=== PATIENT | female | born 1960 | race Caucasian/White ===

== ENCOUNTER 2016-08-03 16:27 | Emergency (ER) | payer OTHER ==
--- NOTE | 2016-08-03 18:21 | DIAGNOSTIC IMAGING REPORT ---
PROCEDURE: XR CHEST 2 VIEW INDICATION: COUGH TECHNIQUE: PA and lateral views. COMPARISON: None. FINDINGS: Lungs are clear. There is cardiomegaly. Thorax is normal. IMPRESSION: 1. Cardiomegaly, lungs clear.
--- NOTE | 2016-08-03 18:24 | DIAGNOSTIC IMAGING REPORT ---
PROCEDURE: XR HAND 3 OR 4 VIEWS - RIGHT INDICATION: TRAUMA/INJURY TECHNIQUE: Four views. COMPARISON: None. FINDINGS: Osseous structures and joint spaces are normal. There is demineralization. IMPRESSION: 1. No fracture or dislocation.
--- NOTE | 2016-08-03 18:26 | DIAGNOSTIC IMAGING REPORT ---
PROCEDURE: XR FOOT 3 VIEWS - RIGHT INDICATION: TRAUMA/INJURY TECHNIQUE: Three views. COMPARISON: None. FINDINGS: Fracture of the proximal phalanx of the fifth digit right fifth toe. IMPRESSION: 1. Fracture of the proximal phalanx of the fifth digit of the right foot.
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
--- NOTE | 2016-08-03 18:54 | ED ORDER SUMMARY ---
..... Patient: TATI NORIEGA OrderSheet [facility] VisitID: [id number] [place] [address] 55y, F Registration Date/Time: 08/03/2016 ORDER SHEET Weight: 136.0 kg (stated) Allergies: Allergen, Loratadine GENERAL ORDERS: Chest 2V Urgent (16:46 08/03/2016 EKoroleva P.A.-C) (Ack 16:48 RKaruga) (17:33 SRoberts R.N.) Hand 3 or 4V Right Urgent (16:46 08/03/2016 EKoroleva P.A.-C) (Ack 16:48 RKaruga) (17:33 SRoberts R.N.) Foot 3V Right Urgent (16:46 08/03/2016 EKoroleva P.A.-C) (Ack 16:48 RKaruga) (17:33 SRoberts R.N.) CBC w Diff Urgent (16:46 08/03/2016 EKoroleva P.A.-C) (Ack 16:48 RKaruga) (17:20 LTapper) BMP Urgent (16:46 08/03/2016 EKoroleva P.A.-C) (Ack 16:48 RKaruga) (17:20 LTapper) BNP Urgent (16:46 08/03/2016 EKoroleva P.A.-C) (Ack 16:48 RKaruga) (17:20 LTapper) Post-op Shoe (18:06 08/03/2016 EKoroleva P.A.-C) (18:20 JBest R.N.) Vitals (18:11 08/03/2016 EKoroleva P.A.-C) (18:20 JBest R.N.) Acetone, Serum Urgent (18:11 08/03/2016 EKoroleva P.A.-C) (Ack 18:16 RKaruga) (19:33 SRoberts R.N.) MEDICATION ORDERS: DuoNeb Neb Tx 1 unit dose (NOW) (17:22 08/03/2016 EKoroleva P.A.-C) (17:46 DBourey) Insulin Reg Subcut 14 units (HIGH ALERT MEDICATION, NOW) (17:26 08/03/2016 Peter Osman) (17:41 Anju RGracieNGracie) Hydrocodone-APAP PO 10/650 mg (NOW, HIGH ALERT MEDICATION) (18:06 08/03/2016 Peter Osman) (Ack 18:19 Anju R.NGracie) (18:19 Tegan R.Trina.) IV FLUIDS: ORDER SHEET NOTES: [Electronically signed by Ronel Soriano P.A.-C (19:13 08/03/2016)] [Electronically signed by Mikki Chacon R.N. (19:34 08/03/2016)] [Electronically locked/signed by Mikki Chacon R.N. (19:34 08/03/2016)]
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
--- NOTE | 2016-08-03 18:54 | ED ORDER SUMMARY ---
..... Patient: TATI NORIEGA OrderSheet [facility] VisitID: [id number] [place] [address] 55y, F Registration Date/Time: 08/03/2016 ORDER SHEET Weight: 136.0 kg (stated) Allergies: Allergen, Loratadine GENERAL ORDERS: Chest 2V Urgent (16:46 08/03/2016 EKoroleva P.A.-C) (Ack 16:48 RKaruga) (17:33 SRoberts R.N.) Hand 3 or 4V Right Urgent (16:46 08/03/2016 EKoroleva P.A.-C) (Ack 16:48 RKaruga) (17:33 SRoberts R.N.) Foot 3V Right Urgent (16:46 08/03/2016 EKoroleva P.A.-C) (Ack 16:48 RKaruga) (17:33 SRoberts R.N.) CBC w Diff Urgent (16:46 08/03/2016 EKoroleva P.A.-C) (Ack 16:48 RKaruga) (17:20 LTapper) BMP Urgent (16:46 08/03/2016 EKoroleva P.A.-C) (Ack 16:48 RKaruga) (17:20 LTapper) BNP Urgent (16:46 08/03/2016 EKoroleva P.A.-C) (Ack 16:48 RKaruga) (17:20 LTapper) Post-op Shoe (18:06 08/03/2016 EKoroleva P.A.-C) (18:20 JBest R.N.) Vitals (18:11 08/03/2016 EKoroleva P.A.-C) (18:20 JBest R.N.) Acetone, Serum Urgent (18:11 08/03/2016 EKoroleva P.A.-C) (Ack 18:16 RKaruga) (19:33 SRoberts R.N.) MEDICATION ORDERS: DuoNeb Neb Tx 1 unit dose (NOW) (17:22 08/03/2016 EKoroleva P.A.-C) (17:46 DBourey) Insulin Reg Subcut 14 units (HIGH ALERT MEDICATION, NOW) (17:26 08/03/2016 Peter Osman) (17:41 Anju RGracieNGracie) Hydrocodone-APAP PO 10/650 mg (NOW, HIGH ALERT MEDICATION) (18:06 08/03/2016 Peter Osman) (Ack 18:19 Anju R.NGracie) (18:19 Tegan R.Trina.) IV FLUIDS: ORDER SHEET NOTES: [Electronically signed by Ronel Soriano P.A.-C (19:13 08/03/2016)] [Electronically signed by Mikki Chacon R.N. (19:34 08/03/2016)] [Electronically locked/signed by Mikki Chacon R.N. (19:34 08/03/2016)]
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
--- NOTE | 2016-08-03 19:34 | ED DISCHARGE INSTRUCTIONS ---
Patient: TATI NORIEGA General Instructions [facility] VisitID: [id number] [place] [id number] 55y, F Registration Date/Time: 08/03/2016 Closed transverse fracture of the proximal phalanx of the right fifth toe. Chronic, moderately well controlled type 2 diabetes with hyperglycemia. No diabetic ketoacidosis. INSTRUCTIONS Prescription Medications: Hydrocodone/APAP 7.5mg / 325mg: take 1 orally every 6 hours as needed for pain. Dispense twelve (12). No refill. Follow-up with: Cesar Bolivar DPM, Podiatry, , [facility], [address] [place] [address], [address], [place] [address] Follow up. Call for the next available appointment. ADDITIONAL INFORMATION Fracture:Toe [Closed] You have a fracture of your toe (broken toe). This causes local pain, swelling and bruising. This injury takes about four weeks to heal. Toe injuries are often treated by taping the injured toe to the next one ("david taping"). This protects the injured toe and holds it in position. If the TOENAIL has been severely injured, it may fall off in 1-2 weeks. It takes up to 12 months for a new toenail to grow back. Home Care: 1) You may be given a cast shoe to wear to prevent movement in your toe. If not, you can use a sandal or any shoe that does not put pressure on the injured toe until the swelling and pain go away. If using a sandal, be careful not to strike your foot against anything, since another injury could make the fracture worse. If you were given crutches, do not put full weight on the injured foot until you can do so without pain. 2) Keep your foot elevated to reduce pain and swelling. When sleeping, place a pillow under the injured leg. When sitting, support the injured leg so it is level with your waist. This is very important during the first 48 hours. 3) Apply an ice pack (ice cubes in a plastic bag, wrapped in a towel) over the injured area for 20 minutes every 1-2 hours the first day. Continue with ice packs 3-4 times a day for the next two days, then as needed for the relief of pain and swelling. 4) If david tape was applied and it becomes wet or dirty, change it. You may replace it with paper, plastic or cloth tape. Cloth tape and paper tapes must be kept dry. 5) You may use acetaminophen (Tylenol) or ibuprofen (Motrin, Advil) to control pain, unless another pain medicine was prescribed. [ NOTE : If you have chronic liver or kidney disease or ever had a stomach ulcer or GI bleeding, talk with your doctor before using these medicines.] 6) You may return to sports or physical education activities after 4 weeks or when you can run without pain. Follow Up With Your Doctor In One Week, Or As Advised By Our Staff, To Be Sure The Bone Is Healing Properly. [NOTE: Any X-rays taken will be reviewed by a radiologist. You will be notified of any new findings that may affect your care.] Get Prompt Medical Attention If Any Of The Following Occur: Increasing pain or swelling Toe becomes cold, blue, numb or tingly Signs of infection: fever, redness, warmth, swelling or drainage from the wound Fever of 100.4F (38C) or higher, or as directed by your healthcare provider You have been given the following additional information: Fracture, Toe [Closed] (Electronically signed by Ronel Soriano P.A.-C 08/03/2016 19:13)
--- NOTE | 2016-08-03 19:34 | ED MED RECONCILIATION SUMMARY ---
Patient: TATI NORIEGA Medication Reconciliation Report [facility] VisitID: [id number] [address] [place] [address] 55y, F Registration Date/Time: 08/03/2016 Weight: 136.0 kg Height/Length: 65 in. BMI: 50.0 ALLERGIES: Allergen, Loratadine The patient's Home Medications are listed below: THE FOLLOWING MEDICATIONS NEED TO BE RECONCILED: Advair Diskus Inhalation, 2x a day Albuterol Sulfate HFA Inhalation, 4x a day Alcaftadine Ophthalmic 1 gtt, each eye/ daily ASA Oral 81mg, daily Cetirizine HCl Oral 10 mg, daily Citalopram Hydrobromide Oral (40 mg), daily Cod Liver Oil Oral 1 tablespoon, daily Combivent Inhalation Flonase Nasal 2 sprays, 2x a day HumaLOG Subcutaneous 20 units, before meals HydrOXYzine HCl Oral 25 mg, 4x a day Lantus Subcutaneous 100 units, daily Lasix Oral 80 mg, 2x a day Levothyroxine Sodium Oral 175 mcg, daily Mirena 20mcg/24hr x 5 yrs Nitroglycerin Sublingual [place] 3 Oral 300 mg, daily Oyster Shell Calcium Oral (500 mg), bid Pantanol 1 gtt , 2x a day, opthalmic route Potassium Chloride Oral 10 meq, 3x a day Spiriva HandiHaler Inhalation Vit D 3 2000 units, daily The source(s) of the original Home Medication information: patient The following Medications were given to the patient in the Emergency Department: Insulin Reg [Subcutaneous] Subcutaneous 14 unit, administered: 08/03/2016 5:40:00 PM Duoneb [Neb Tx] Neb TX 1 unit dose, administered: 08/03/2016 5:41:00 PM Hydrocodone-APAP [PO] PO 2 tab, administered: 08/03/2016 6:19:00 PM The following Medications were prescribed to the patient: Hydrocodone/APAP 7.5mg / 325mg: take 1 orally every 6 hours as needed for pain. Dispense twelve (12). No refill. -- Ronel Soriano, PGracieAGracie-C
--- NOTE | 2016-08-03 19:34 | ED MAR SUMMARY ---
..... Medication Administration Record [facility] [address] [place] [address] Patient: TATI NORIEGA Visit ID: [id number] 55y, F Weight: 136.0 kg Height/Length: 65 in BMI: 50 ALLERGIES: Allergen, Loratadine Given 17:40 08/03/2016 Mikki Chacon R.N. Medication Administered: INSULIN REG [SUBCUTANEOUS], Dose: 14 unit Subcutaneous. Medication Ordered: Insulin Reg Subcut 14 units (HIGH ALERT MEDICATION, NOW). Given 17:41 08/03/2016 Miguel Paiz, Medication Administered: DUONEB [NEB TX] (IPRATROPIUM-ALBUTEROL), Dose: 1 unit dose Neb TX. Medication Ordered: DuoNeb Neb Tx 1 unit dose (NOW). Given 18:19 08/03/2016 Rachana Messer R.N. Medication Administered: HYDROCODONE-APAP [PO] (HYDROCODONE-ACETAMINOPHEN), Dose: 2 tab 5/325 mg Tablets PO. Medication Ordered: Hydrocodone-APAP PO 10/650 mg (NOW, HIGH ALERT MEDICATION).
--- NOTE | 2016-08-03 19:34 | ED MAR SUMMARY ---
..... Medication Administration Record [facility] [address] [place] [address] Patient: TATI NORIEGA Visit ID: [id number] 55y, F Weight: 136.0 kg Height/Length: 65 in BMI: 50 ALLERGIES: Allergen, Loratadine Given 17:40 08/03/2016 Mikki Chacon R.N. Medication Administered: INSULIN REG [SUBCUTANEOUS], Dose: 14 unit Subcutaneous. Medication Ordered: Insulin Reg Subcut 14 units (HIGH ALERT MEDICATION, NOW). Given 17:41 08/03/2016 Miguel Paiz, Medication Administered: DUONEB [NEB TX] (IPRATROPIUM-ALBUTEROL), Dose: 1 unit dose Neb TX. Medication Ordered: DuoNeb Neb Tx 1 unit dose (NOW). Given 18:19 08/03/2016 Rachana Messer R.N. Medication Administered: HYDROCODONE-APAP [PO] (HYDROCODONE-ACETAMINOPHEN), Dose: 2 tab 5/325 mg Tablets PO. Medication Ordered: Hydrocodone-APAP PO 10/650 mg (NOW, HIGH ALERT MEDICATION).
--- NOTE | 2016-08-03 19:34 | ED MED RECONCILIATION SUMMARY ---
Patient: TATI NORIEGA Medication Reconciliation Report [facility] VisitID: [id number] [address] [place] [address] 55y, F Registration Date/Time: 08/03/2016 Weight: 136.0 kg Height/Length: 65 in. BMI: 50.0 ALLERGIES: Allergen, Loratadine The patient's Home Medications are listed below: THE FOLLOWING MEDICATIONS NEED TO BE RECONCILED: Advair Diskus Inhalation, 2x a day Albuterol Sulfate HFA Inhalation, 4x a day Alcaftadine Ophthalmic 1 gtt, each eye/ daily ASA Oral 81mg, daily Cetirizine HCl Oral 10 mg, daily Citalopram Hydrobromide Oral (40 mg), daily Cod Liver Oil Oral 1 tablespoon, daily Combivent Inhalation Flonase Nasal 2 sprays, 2x a day HumaLOG Subcutaneous 20 units, before meals HydrOXYzine HCl Oral 25 mg, 4x a day Lantus Subcutaneous 100 units, daily Lasix Oral 80 mg, 2x a day Levothyroxine Sodium Oral 175 mcg, daily Mirena 20mcg/24hr x 5 yrs Nitroglycerin Sublingual [place] 3 Oral 300 mg, daily Oyster Shell Calcium Oral (500 mg), bid Pantanol 1 gtt , 2x a day, opthalmic route Potassium Chloride Oral 10 meq, 3x a day Spiriva HandiHaler Inhalation Vit D 3 2000 units, daily The source(s) of the original Home Medication information: patient The following Medications were given to the patient in the Emergency Department: Insulin Reg [Subcutaneous] Subcutaneous 14 unit, administered: 08/03/2016 5:40:00 PM Duoneb [Neb Tx] Neb TX 1 unit dose, administered: 08/03/2016 5:41:00 PM Hydrocodone-APAP [PO] PO 2 tab, administered: 08/03/2016 6:19:00 PM The following Medications were prescribed to the patient: Hydrocodone/APAP 7.5mg / 325mg: take 1 orally every 6 hours as needed for pain. Dispense twelve (12). No refill. -- Ronel Soriano, PGracieAGracie-C
--- NOTE | 2016-08-03 19:34 | ED DISCHARGE INSTRUCTIONS ---
Patient: TATI NORIEGA General Instructions [facility] VisitID: [id number] [place] [id number] 55y, F Registration Date/Time: 08/03/2016 Closed transverse fracture of the proximal phalanx of the right fifth toe. Chronic, moderately well controlled type 2 diabetes with hyperglycemia. No diabetic ketoacidosis. INSTRUCTIONS Prescription Medications: Hydrocodone/APAP 7.5mg / 325mg: take 1 orally every 6 hours as needed for pain. Dispense twelve (12). No refill. Follow-up with: Cesar Bolivar DPM, Podiatry, , [facility], [address] [place] [address], [address], [place] [address] Follow up. Call for the next available appointment. ADDITIONAL INFORMATION Fracture:Toe [Closed] You have a fracture of your toe (broken toe). This causes local pain, swelling and bruising. This injury takes about four weeks to heal. Toe injuries are often treated by taping the injured toe to the next one ("david taping"). This protects the injured toe and holds it in position. If the TOENAIL has been severely injured, it may fall off in 1-2 weeks. It takes up to 12 months for a new toenail to grow back. Home Care: 1) You may be given a cast shoe to wear to prevent movement in your toe. If not, you can use a sandal or any shoe that does not put pressure on the injured toe until the swelling and pain go away. If using a sandal, be careful not to strike your foot against anything, since another injury could make the fracture worse. If you were given crutches, do not put full weight on the injured foot until you can do so without pain. 2) Keep your foot elevated to reduce pain and swelling. When sleeping, place a pillow under the injured leg. When sitting, support the injured leg so it is level with your waist. This is very important during the first 48 hours. 3) Apply an ice pack (ice cubes in a plastic bag, wrapped in a towel) over the injured area for 20 minutes every 1-2 hours the first day. Continue with ice packs 3-4 times a day for the next two days, then as needed for the relief of pain and swelling. 4) If david tape was applied and it becomes wet or dirty, change it. You may replace it with paper, plastic or cloth tape. Cloth tape and paper tapes must be kept dry. 5) You may use acetaminophen (Tylenol) or ibuprofen (Motrin, Advil) to control pain, unless another pain medicine was prescribed. [ NOTE : If you have chronic liver or kidney disease or ever had a stomach ulcer or GI bleeding, talk with your doctor before using these medicines.] 6) You may return to sports or physical education activities after 4 weeks or when you can run without pain. Follow Up With Your Doctor In One Week, Or As Advised By Our Staff, To Be Sure The Bone Is Healing Properly. [NOTE: Any X-rays taken will be reviewed by a radiologist. You will be notified of any new findings that may affect your care.] Get Prompt Medical Attention If Any Of The Following Occur: Increasing pain or swelling Toe becomes cold, blue, numb or tingly Signs of infection: fever, redness, warmth, swelling or drainage from the wound Fever of 100.4F (38C) or higher, or as directed by your healthcare provider You have been given the following additional information: Fracture, Toe [Closed] (Electronically signed by Ronel Soriano P.A.-C 08/03/2016 19:13)
== END 2016-08-03 19:05 | disposition home or self-care (01) ==
LOC: ED SRH 16:27
DX: S92.511A Displaced fracture of proximal phalanx of right lesser toe(s), initial encounter for closed fracture (principal); E11.65 Type 2 diabetes mellitus with hyperglycemia; J44.9 Chronic obstructive pulmonary disease, unspecified; W18.30XA Fall on same level, unspecified, initial encounter; Z79.4 Long term (current) use of insulin; E07.9 Disorder of thyroid, unspecified; Z79.899 Other long term (current) drug therapy; Z79.51 Long term (current) use of inhaled steroids

== ENCOUNTER 2016-11-15 22:05 | Emergency (ER) | payer OTHER ==
--- NOTE | 2016-11-15 23:37 | DIAGNOSTIC IMAGING REPORT ---
PROCEDURE: XR WRIST MIN 3 VIEWS - LEFT INDICATION: TRAUMA/INJURY TECHNIQUE: Four views. COMPARISON: Left wrist x-ray 11/02/2014. FINDINGS: No fracture dislocation. Mild degenerative changes of the radiocarpal joint. IMPRESSION: 1. Negative left wrist. If an occult scaphoid fracture is suspected clinically, follow-up x-ray in 10 days may be useful.
--- NOTE | 2016-11-15 23:38 | DIAGNOSTIC IMAGING REPORT ---
PROCEDURE: XR ELBOW 3 OR 4 VIEWS - LEFT INDICATION: TRAUMA/INJURY TECHNIQUE: Four views. COMPARISON: None. FINDINGS: Osseous structures, joint spaces, and soft tissues are normal. No evidence of an effusion. IMPRESSION: 1. Normal left elbow.
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
--- NOTE | 2016-11-15 23:42 | ED ORDER SUMMARY ---
..... Patient: TATI NORIEGA OrderSheet [facility] VisitID: [id number] [place] [address] 55y, F Registration Date/Time: 11/15/2016 ORDER SHEET Weight: 136.0 kg (stated) Allergies: Allergen, Loratadine GENERAL ORDERS: Elbow 3 or 4V Left Urgent (23:03 11/15/2016 Trina SANZ) (Ack 23:04 AMcQuoid ER Tech1) (23:20 MCampbell) Wrist 3 or 4V Left Urgent (23:03 11/15/2016 Trina SANZ) (Ack 23:04 AMcQuoid ER Tech1) (23:20 MCampbell) MEDICATION ORDERS: Ibuprofen PO 600 mg (NOW) (23:37 11/15/2016 Citlaly R.N. verbal order read back to Trina SANZ) (23:39 RMkrupa R.N.) Verbal order read back and verified IV FLUIDS: ORDER SHEET NOTES: [Electronically signed by Elissa Carrasco R.N. (00:02 11/16/2016)] [Electronically signed by Rosalio Hardy MD (18:50 11/20/2016)] [Electronically locked/signed by Elissa Carrasco R.N. (00:02 11/16/2016)]
--- NOTE | 2016-11-15 23:42 | ED ORDER SUMMARY ---
..... Patient: TATI NORIEGA OrderSheet [facility] VisitID: [id number] [place] [address] 55y, F Registration Date/Time: 11/15/2016 ORDER SHEET Weight: 136.0 kg (stated) Allergies: Allergen, Loratadine GENERAL ORDERS: Elbow 3 or 4V Left Urgent (23:03 11/15/2016 Trina SANZ) (Ack 23:04 AMcQuoid ER Tech1) (23:20 MCampbell) Wrist 3 or 4V Left Urgent (23:03 11/15/2016 Trina SANZ) (Ack 23:04 AMcQuoid ER Tech1) (23:20 MCampbell) MEDICATION ORDERS: Ibuprofen PO 600 mg (NOW) (23:37 11/15/2016 Citlaly R.N. verbal order read back to Trina SANZ) (23:39 RMkrupa R.N.) Verbal order read back and verified IV FLUIDS: ORDER SHEET NOTES: [Electronically signed by Elissa Carrasco R.N. (00:02 11/16/2016)] [Electronically signed by Rosalio Hardy MD (18:50 11/20/2016)] [Electronically locked/signed by Elissa Carrasco R.N. (00:02 11/16/2016)]
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
--- NOTE | 2016-11-20 18:50 | ED MED RECONCILIATION SUMMARY ---
Patient: TATI NORIEGA Medication Reconciliation Report [facility] VisitID: [id number] [place] [address] 55y, F Registration Date/Time: 11/15/2016 Weight: 136.0 kg Height/Length: 66 in. BMI: 48.4 ALLERGIES: Allergen, Loratadine The patient's Home Medications are listed below: THE FOLLOWING MEDICATIONS NEED TO BE RECONCILED: Advair Diskus Inhalation, 2x a day Albuterol Sulfate HFA Inhalation, 4x a day Alcaftadine Ophthalmic 1 gtt, each eye/ daily ASA Oral 81mg, daily Cetirizine HCl Oral 10 mg, daily Citalopram Hydrobromide Oral (40 mg), daily Cod Liver Oil Oral 1 tablespoon, daily Combivent Inhalation Flonase Nasal 2 sprays, 2x a day HumaLOG Subcutaneous 20 units, before meals HydrOXYzine HCl Oral 25 mg, 4x a day Lantus Subcutaneous 100 units, daily Lasix Oral 80 mg, 2x a day Levothyroxine Sodium Oral 175 mcg, daily Mirena 20mcg/24hr x 5 yrs Nitroglycerin Sublingual [place] 3 Oral 300 mg, daily Oyster Shell Calcium Oral (500 mg), bid Pantanol 1 gtt , 2x a day, opthalmic route Potassium Chloride Oral 10 meq, 3x a day Spiriva HandiHaler Inhalation Vit D 3 2000 units, daily The source(s) of the original Home Medication information: Not obtained. The following Medications were given to the patient in the Emergency Department: Ibuprofen [PO] PO 600 mg, administered: 11/15/2016 11:39:00 PM The following Medications were prescribed to the patient: Ibuprofen 600mg tablets: take 1 tablet orally every 8 hours as needed for pain. Dispense thirty (30). No refills. -- Rosalio Hardy MD Magnesium Citrate (10-oz bottle) (available over the counter): take 1/2 bottle to achieve bowel movement. Repeat after 4 hours if needed. -- Rosalio Hardy MD Hydrocortisone 2.5% Cream: Apply to affected areas 2 times daily as needed. Dispense twenty (20) gm. No refills. Substitution is permissible. -- Rosalio Hardy MD
--- NOTE | 2016-11-20 18:50 | ED DISCHARGE INSTRUCTIONS ---
Patient: TATI NORIEGA General Instructions [facility] VisitID: [id number] [place] [address] 55y, F Registration Date/Time: 11/15/2016 Contusion to the left forearm. Neuropathy. Constipation Moderate irritative contact dermatitis. INSTRUCTIONS Warnings: GENERAL WARNINGS: Return or contact your physician immediately if your condition worsens or changes unexpectedly, if not improving as expected, or if other problems arise. Prescription Medications: Ibuprofen 600mg tablets: take 1 tablet orally every 8 hours as needed for pain. Dispense thirty (30). No refills. Hydrocortisone 2.5% Cream: Apply to affected areas 2 times daily as needed. Dispense twenty (20) gm. No refills. Substitution is permissible. OTC Medications: Magnesium Citrate (10-oz bottle) (available over the counter): take 1/2 bottle to achieve bowel movement. Repeat after 4 hours if needed. Follow-up: Follow up with your doctor FAUSTINO URBINA in seven days. Call for the next available appointment. Understanding of the discharge instructions verbalized by patient. ADDITIONAL INFORMATION Contusion:Upper Extremity You have a contusion of your upper extremity (arm, wrist, hand or fingers). This causes local pain, swelling and sometimes bruising. There are no broken bones. This injury takes a few days to a few weeks to heal. A sling may be provided for comfort and arm support. Home Care: 1) Keep your arm elevated to reduce pain and swelling. This is very important during the first 48 hours. 2) Apply an ice pack (ice cubes in a plastic bag, wrapped in a towel) over the injured area for 20 minutes every 1-2 hours the first day for pain relief. Continue this 3-4 times a day until the pain and swelling goes away. 3) You may use acetaminophen (Tylenol) or ibuprofen (Motrin, Advil) to control pain, unless another pain medicine was prescribed. [ NOTE : If you have chronic liver or kidney disease or ever had a stomach ulcer or GI bleeding, talk with your doctor before using these medicines.] 4) If a sling was provided, you may remove it to shower or bathe. Do not wear it for more than one week or it may cause joint stiffness. Follow Up with your doctor or this facility if you are not starting to improve within the next THREE days. [NOTE: If X-rays were taken, they will be reviewed by a radiologist. You will be notified of any new findings that may affect your care.] Get Prompt Medical Attention if any of the following occur: -- Pain or swelling increases -- Redness, warmth or drainage -- Hand or fingers becomes cold, blue, numb or tingly Ulnar Nerve Palsy The ulnar nerve travels down the arm, passing along the inside of the elbow. It controls movement and feeling in the wrist and hand. Palsy of the ulnar nerve occurs when there is injury to this nerve. The most common cause of ulnar nerve palsy is leaning on the elbow for long periods of time. An elbow fracture or dislocation can also injure the nerve. There are other causes, too. Ulnar nerve palsy causes a [id number] feeling and weakness in the hand. If the condition is prolonged, the muscles of the hand become thin and tight. The fingers bend into a contracted position. Treatment of permanent nerve damage involves physical therapy to prevent tightening of the muscles of the hand. Home Care Avoid resting your weight on your elbows when sitting at a table or riding in a vehicle. If you were given a sling, wear it as directed for support. Rest the arm until you get normal feeling and strength back. Follow Up with your doctor or as advised by our staff. Get Prompt Medical Attention if any of the following occur: Increasing arm swelling or pain Numbness or weakness of the face or leg Slurred speech, confusion, trouble speaking, walking or seeing Constipation (Adult) Constipation is bowel movements that are less frequent than usual. Stools often become very hard and difficult to pass. This may lead to abdominal pain and bloating. It may also cause painful bowel movements. Constipation may be due to a diet thats low in fiber. Some medications, especially pain medications, can also cause it. Constipation may be treated with enemas, suppositories, laxatives or stool softeners. Your doctor will advise you which will work best for you. Follow the advice below to help avoid this problem in the future. Home Care Medication: Take any medicines as directed. Some laxatives are safe only for occasional use. Others can be taken on a regular basis. Talk to your doctor or pharmacist if you have questions. General Care: Prescription pain medications can cause constipation. If you are prescribed pain medications, ask the doctor whether you should also take a stool softener. A diet high in fiber with plenty of fluids helps to maintain regular, soft bowel movements. The following foods are good sources of dietary fiber: Cereals and breads: Whole grain cereal with bran, oatmeal, rolled oats, whole grain breads Fruits: All fruits (fresh and dried), raisins, prunes, apricots, berries, figs Vegetables: Any fresh vegetables, especially peas, broccoli, brussels sprouts, winter squash, green beans, cauliflower, caro beans, carrots Other: Popcorn, brown rice Drink plenty of water when you increase the amount of fiber you eat. Follow Up with your doctor or return to this facility if symptoms do not improve in the next few days. You may require further tests or a referral to a specialist. Get Prompt Medical Attention if any of the following occur: Fever over 100.4F (38C) Failure to resume normal bowel movements Increasing abdominal or back pain Nausea or vomiting Abdominal swelling Blood in the stool Weakness, dizziness or fainting Unexpected vaginal bleeding Dermatitis (Non-Specific) Dermatitis is an inflammation of the skin. The exact cause of your rash is not certain. However, this rash does not appear to be an infection or contagious illness. Taking care of the rash at home should help relieve your symptoms. Home Care: Keep the areas of rash clean by washing it daily. This also helps to keep the skin moist. Use a neutral pH soap such as Dove or Lever 2000. Apply a moisturizing lotion after bathing to prevent dry skin. Avoid skin irritants (wool or silk clothing, grease, oils, some medicines, harsh soaps, and detergents). Wear absorbent, soft fabrics next to the skin rather than rough or scratchy materials. Unless another medicine was prescribed, you may use Hydrocortisone cream (which you can get without a prescription) to reduce the inflammation. Follow Up: Make an appointment with your doctor in the next 1 to 2 weeks if your symptoms do not improve with the above measures. Get Prompt Medical Attention if any of the following occur: Increasing area of redness or pain in the skin Yellow crusts or drainage from the rash Joint pain New rash that appears in other areas of the body Fever of 100.4F (38C) or higher, or as directed by your healthcare provider Ibuprofen Oral tablet What is this medicine? IBUPROFEN (eye BYOO proe fen) is a non-steroidal anti-inflammatory drug (NSAID). It is used for dental pain, fever, headaches or migraines, osteoarthritis, rheumatoid arthritis, or painful monthly periods. It can also relieve minor aches and pains caused by a cold, flu, or sore throat. How should I use this medicine? Take this medicine by mouth with a glass of water. Follow the directions on the prescription label. Take this medicine with food if your stomach gets upset. Try to not lie down for at least 10 minutes after you take the medicine. Take your medicine at regular intervals. Do not take your medicine more often than directed. A special MedGuide will be given to you by the pharmacist with each prescription and refill. Be sure to read this information carefully each time. Talk to your trim crew supervisor regarding the use of this medicine in children. Special care may be needed. What side effects may I notice from receiving this medicine? Side effects that you should report to your doctor or health long term care social worker as soon as possible: allergic reactions like skin rash, itching or hives, swelling of the face, lips, or tongue black or bloody stools, blood in the urine or in vomit breathing problems changes in vision chest pain general ill feeling or flu-like symptoms nausea or vomiting redness, blistering, peeling or loosening of the skin, including inside the mouth slurred speech or weakness on one side of the body stomach pain unexplained weight gain or swelling unusually weak or tired yellowing of eyes or skin Side effects that usually do not require medical attention (report to your doctor or health long term care social worker if they continue or are bothersome): constipation or diarrhea dizziness gas or heartburn stomach upset What may interact with this medicine? Do not take this medicine with any of the following medications: cidofovir ketorolac methotrexate pemetrexed This medicine may also interact with the following medications: alcohol aspirin diuretics lithium other drugs for inflammation like prednisone warfarin What if I miss a dose? If you miss a dose, take it as soon as you can. If it is almost time for your next dose, take only that dose. Do not take double or extra doses. Where should I keep my medicine? Keep out of the reach of children. Store at room temperature between 15 and 30 degrees C (59 and 86 degrees F). Keep container tightly closed. Throw away any unused medicine after the expiration date. What should I tell my health care provider before I take this medicine? They need to know if you have any of these conditions: asthma cigarette smoker drink more than 3 alcohol containing drinks a day heart disease or circulation problems such as heart failure or leg edema (fluid retention) high blood pressure kidney disease liver disease stomach bleeding or ulcers an unusual or allergic reaction to ibuprofen, aspirin, other NSAIDS, other medicines, foods, dyes, or preservatives or trying to get breast-feeding What should I watch for while using this medicine? Tell your doctor or healthcare professional if your symptoms do not start to get better or if they get worse. This medicine does not prevent heart attack or stroke. In fact, this medicine may increase the chance of a heart attack or stroke. The chance may increase with longer use of this medicine and in people who have heart disease. If you take aspirin to prevent heart attack or stroke, talk with your doctor or health long term care social worker. Do not take other medicines that contain aspirin, ibuprofen, or naproxen with this medicine. Side effects such as stomach upset, nausea, or ulcers may be more likely to occur. Many medicines available without a prescription should not be taken with this medicine. This medicine can cause ulcers and bleeding in the stomach and intestines at any time during treatment. Ulcers and bleeding can happen without warning symptoms and can cause . To reduce your risk, do not smoke cigarettes or drink alcohol while you are taking this medicine. You may get drowsy or dizzy. Do not drive, use machinery, or do anything that needs mental alertness until you know how this medicine affects you. Do not stand or sit up quickly, especially if you are an older patient. This reduces the risk of dizzy or fainting spells. This medicine can cause you to bleed more easily. Try to avoid damage to your teeth and gums when you brush or floss your teeth. You have been given the following additional information: Contusion, Upper Extremity Ulnar Nerve Palsy Constipation (Adult) Dermatitis, Non-Specific Ibuprofen Oral tablet (Electronically signed by Rosalio Hardy MD 11/20/2016 18:50)
--- NOTE | 2016-11-20 18:50 | ED MED RECONCILIATION SUMMARY ---
Patient: TATI NORIEGA Medication Reconciliation Report [facility] VisitID: [id number] [place] [address] 55y, F Registration Date/Time: 11/15/2016 Weight: 136.0 kg Height/Length: 66 in. BMI: 48.4 ALLERGIES: Allergen, Loratadine The patient's Home Medications are listed below: THE FOLLOWING MEDICATIONS NEED TO BE RECONCILED: Advair Diskus Inhalation, 2x a day Albuterol Sulfate HFA Inhalation, 4x a day Alcaftadine Ophthalmic 1 gtt, each eye/ daily ASA Oral 81mg, daily Cetirizine HCl Oral 10 mg, daily Citalopram Hydrobromide Oral (40 mg), daily Cod Liver Oil Oral 1 tablespoon, daily Combivent Inhalation Flonase Nasal 2 sprays, 2x a day HumaLOG Subcutaneous 20 units, before meals HydrOXYzine HCl Oral 25 mg, 4x a day Lantus Subcutaneous 100 units, daily Lasix Oral 80 mg, 2x a day Levothyroxine Sodium Oral 175 mcg, daily Mirena 20mcg/24hr x 5 yrs Nitroglycerin Sublingual Screven 3 Oral 300 mg, daily Oyster Shell Calcium Oral (500 mg), bid Pantanol 1 gtt , 2x a day, opthalmic route Potassium Chloride Oral 10 meq, 3x a day Spiriva HandiHaler Inhalation Vit D 3 2000 units, daily The source(s) of the original Home Medication information: Not obtained. The following Medications were given to the patient in the Emergency Department: Ibuprofen [PO] PO 600 mg, administered: 11/15/2016 11:39:00 PM The following Medications were prescribed to the patient: Ibuprofen 600mg tablets: take 1 tablet orally every 8 hours as needed for pain. Dispense thirty (30). No refills. -- Rosalio Hardy MD Magnesium Citrate (10-oz bottle) (available over the counter): take 1/2 bottle to achieve bowel movement. Repeat after 4 hours if needed. -- Rosalio Hardy MD Hydrocortisone 2.5% Cream: Apply to affected areas 2 times daily as needed. Dispense twenty (20) gm. No refills. Substitution is permissible. -- Rosalio Hardy MD
--- NOTE | 2016-11-20 18:50 | ED MAR SUMMARY ---
..... Medication Administration Record [facility] [address] [place] [place] [address] Patient: TATI NORIEGA Visit ID: [id number] 55y, F Weight: 136.0 kg Height/Length: 66 in BMI: 48.4 ALLERGIES: Allergen, Loratadine Given 23:39 11/15/2016 Elissa Carrasco R.N. Medication Administered: IBUPROFEN [PO], Dose: 600 mg Tablets PO. Medication Ordered: Ibuprofen PO 600 mg (NOW).
--- NOTE | 2016-11-20 18:50 | ED MAR SUMMARY ---
..... Medication Administration Record [facility] [address] [place] [address] Patient: TATI NORIEGA Visit ID: [id number] 55y, F Weight: 136.0 kg Height/Length: 66 in BMI: 48.4 ALLERGIES: Allergen, Loratadine Given 23:39 11/15/2016 Elissa Carrasco R.N. Medication Administered: IBUPROFEN [PO], Dose: 600 mg Tablets PO. Medication Ordered: Ibuprofen PO 600 mg (NOW).
== END 2016-11-15 23:54 | disposition home or self-care (01) ==
LOC: ED SRH 22:05
DX: S50.12XA Contusion of left forearm, initial encounter (principal); L24.9 Irritant contact dermatitis, unspecified cause; E11.40 Type 2 diabetes mellitus with diabetic neuropathy, unspecified; K59.00 Constipation, unspecified; X58.XXXA Exposure to other specified factors, initial encounter; Y93.9 Activity, unspecified; Y92.9 Unspecified place or not applicable; Y99.9 Unspecified external cause status; J44.9 Chronic obstructive pulmonary disease, unspecified; Z79.4 Long term (current) use of insulin

== ENCOUNTER 2016-11-23 16:37 | Emergency (ER) | payer OTHER ==
--- NOTE | 2016-11-23 17:17 | ED CLINICAL REPORT ---
Clinical Report - Physicians/Mid Levels [facility] [address] [place] [place] [address] 11/23/2016 16:36 Patient: TATI NORIEGA Time Seen: 16:48; initial patient contact, initial documentation, patient care assumed. Arrived- By private vehicle. Historian- patient and family. HISTORY OF PRESENT ILLNESS Chief Complaint: SKIN RASH. This started about 2 weeks ago and is still present and worsening. It is described as itchy, painful and burning. It has been located on the left arm. No cause has been identified. (pt would also like pain medicine for her elbow pain, states dr here xrayed her elbow, but she didn't get the results, and she needs pain meds because her elbow throbs, denies any new injury/trauma). Similar symptoms previously: None. Recent medical care: The patient was seen recently at this facility in the emergency department. ( txed here 11/15, dx dermatitis, given rx cortizone cream, no better and no f/u). REVIEW OF SYSTEMS No difficulty breathing. All systems otherwise negative, except as recorded above. PAST HISTORY See nurses notes. PROBLEMS: Constipation. Neuropathy. Contact Dermatitis. Foot Fracture. Myofascial Strain. Cervical Strain. Wrist Fracture. Contusion. Fall. Cellulitis. Hernia. COPD - Chronic Obstructive Pulmonary Disease. Dyspnea. Dental Abscess. Sleep Apnea. Hypertriglyceridemia. Hypothyroidism. Diabetes Mellitus. --16:48 Rachana Messer R.N. Additional Surgeries: Tubal Ligation. SOCIAL HISTORY Never smoker. No alcohol use or drug use. No recent travel. Is a local resident. FAMILY HISTORY Negative. ADDITIONAL NOTES The nursing notes have been reviewed with agreement regarding the chief complaint, HPI, ROS, PMH and patient medications and allergies. PHYSICAL EXAM Vital Signs: 11/23/2016 16:44 BP: 146/71. HR: 92. RR: 18. O2 saturation: 95%. Temp: 97.7 F. Pain level now: 10/10. Have been reviewed as normal and appear to be correct. Appearance: Alert. Oriented X3. No acute distress. Eyes: Pupils equal, round and reactive to light. Conjunctivae and eyelids normal. Neck: Neck supple. Respiratory: No respiratory distress. Abdomen: (morbid obese). Skin: Skin warm and dry. Normal skin color. Rash present. Normal skin turgor. Moderate, erythematous, macular, papular, crusting skin rash in the left axilla, on the left arm, left elbow, left forearm, left wrist, left hand and left palm of the hand- with scabs and possible new lesions started. No blanching, weeping or excoriated skin rash. No skin rash with an erythematous base or a target-like or cobblestone appearance. Extremities: Normal external inspection. Extremities nontender. Neuro: Oriented X 3. No motor deficit. No sensory deficit. PROGRESS AND PROCEDURES Patient and family counseled in person regarding the patient's stable condition and diagnosis. Differential Diagnosis: Other possible considerations: dermatitis, fungus, mrsa, cellulitis, impetigo, psoriasis. Above considerations are based on history and physical exam. Differential diagnosis was discussed with patient and patient's family. Disposition: Discharged home in good and unchanged condition (17:17). Condition: good and stable. CLINICAL IMPRESSION Moderate irritative contact dermatitis. INSTRUCTIONS ([facility] [id number] [facility] [address] Dermatology: ). Warnings: GENERAL WARNINGS: Return or contact your physician immediately if your condition worsens or changes unexpectedly, if not improving as expected, or if other problems arise. Specifically return if problem worsens. Prescription Medications: Ultram 50 mg tablets: take 1-2 orally every 6 hours as needed for pain. Dispense twenty (20). No refills. Substitution is permissible. Betamethasone Diproprinate Lotion 60ml bottle or 45gm tube apply bid to affected areas til gone. Follow-up: Follow up with a implementation specialist payroll in about two days even if well. Call for an appointment. Summary of care provided to patient. Understanding of the discharge instructions verbalized by patient. (Electronically signed by Alexa Cisse A.R.N.P. 11/23/2016 20:45)
--- NOTE | 2016-11-23 17:17 | ED NURSING NOTES ---
Clinical Report - Nurses [facility] [address] [place] [address] 11/23/2016 16:36 Patient: TATI NORIEGA TRIAGE Triage time 16:44. Acuity: LEVEL 3. Chief Complaint: SKIN RASH and TENDER AREA. SEPSIS SCREEN: Sepsis Screen. Negative (no infection suspected/documented). --16:51 Rachana Messer R.N. 16:44 11/23/16. BP: 146/71. HR: 92. RR: 18. O2 saturation: 95%. Temp: 97.7 F. Pain level now: 03/05. --16:51 Rachana Messer R.N. Weight: 136 kg stated. Height/Length: 66 inches Per Patient. BMI: 48.4. --16:50 Rachana Messer R.N. Medications Advair Diskus Inhalation, 2x a day. Albuterol Sulfate HFA Inhalation, 4x a day. Alcaftadine Ophthalmic 1 gtt, each eye/ daily. ASA Oral 81mg, daily. Cetirizine HCl Oral 10 mg, daily. Citalopram Hydrobromide Oral (Tablet 40 mg), daily. Cod Liver Oil Oral 1 tablespoon, daily. --16:47 Rachana Messer R.N. Combivent Inhalation. Flonase Nasal 2 sprays, 2x a day. HumaLOG Subcutaneous 20 units, before meals. HydrOXYzine HCl Oral 25 mg, 4x a day as needed. Lantus Subcutaneous 100 units, daily. Lasix Oral 80 mg, 2x a day. Levothyroxine Sodium Oral 175 mcg, daily. Mirena 20mcg/24hr x 5 yrs. Nitroglycerin Sublingual. Spicewood 3 Oral 300 mg, daily. Oyster Shell Calcium Oral (Tablet 500 mg), bid. Pantanol 1 gtt , 2x a day (opthalmic route). Potassium Chloride Oral 10 meq, 3x a day. Spiriva HandiHaler Inhalation. Vit D 3 2000 units, daily. --16:47 Rachana Messer R.N. Medication/allergy information source: the patient. --16:51 Rachana Messer R.N. Allergies Allergen. Definite Moderate(swelling) Loratadine. Definite Severe(swelling) --16:47 Rachana Messer R.N. History Arrived by private vehicle. Historian: patient. Accompanied by family. Primary physician (Mat Mcpherson)). Reported as located on the left arm. Onset. (about 2 weeks ago). It is described as itchy, burning and painful. ( along left arm, hand, and axilla). She has had muscle aches. Treatment ONCOLOGY ACCOUNT SPECIALIST: Took ibuprofen and used OTC topical product (Cortisone). Seen within the last 30 days at this facility. PAST MEDICAL HX: Immunizations: up-to-date. SOCIAL HX: Former smoker. No alcohol use or drug use. No infectious disease exposure. SELF HARM ASSESSMENT: A self harm assessment was performed. The patient answered "no" to the question "Do you have thoughts of harming or killing yourself?". ABUSE ASSESSMENT: Abuse assessment: ("yes") The patient was asked "Do you feel safe in your home?". --16:51 Rachana Messer R.N. PAST MEDICAL HX: Uses an intrauterine device. --16:56 Rachana Messer R.N. Treatment ONCOLOGY ACCOUNT SPECIALIST: Seen within the last 30 days at this facility; xrays done. --17:05 Rachana Messer R.N. PROBLEMS: Constipation. Neuropathy. Contact Dermatitis. Foot Fracture. Myofascial Strain. Cervical Strain. Wrist Fracture. Contusion. Fall. Cellulitis. Hernia. COPD - Chronic Obstructive Pulmonary Disease. Dyspnea. Dental Abscess. Sleep Apnea. Hypertriglyceridemia. Hypothyroidism. Diabetes Mellitus. --16:48 Rachana Messer R.N. ADDITIONAL SURGERIES: Tubal Ligation. --16:50 Rachana Messer R.N. Interventions ID band on patient. To room. --16:51 Rachana Messer R.N. PHYSICAL ASSESSMENT To room via wheelchair. Patient gowned. GENERAL / NEURO / PSYCH: Alert. The patient does not appear to be in acute distress. Oriented X 4. RESPIRATORY: Respirations not labored. SKIN: Skin rash in the left axilla, on the left arm, left wrist, left hand and left palm of the hand. --16:53 Rachana Messer R.N. NURSING PROGRESS NOTES Patient gowned. Reassurance given. Patient identifiers checked. Call light placed in reach. Side rails up. Bed placed in lowest position. Brakes of bed on. Patient ready for evaluation- ED physician and PA notified. --16:53 Rachana Messer R.N. DISPOSITION / DISCHARGE Condition at departure: unchanged. No learning barriers present. Discharge instructions provided and reviewed with the patient and family. Reviewed medication(s) side effects, precautions, dosing and course information. Prescription(s) given to the patient. Reviewed referral to a staff field engineer for followup. Patient verbalized understanding. Written instructions provided in Canadian. The patient was discharged by the physician pediatric assistant. She was discharged home and accompanied by family. She left the Emergency Department in a wheelchair and via private vehicle. Family member driving. --17:42 Rachana Messer R.N. 17:40 11/23/16. BP: 146/70. HR: 90. RR: 16. O2 saturation: 99%. Temp: 98.6 F. Pain level now: 03/05. --17:42 Rachana Messer R.N. Departure time: 17:42. --17:42 Rachana Messer R.N. Locked/Released at 11/23/2016 17:55 by Rachana Messer R.N.
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
--- NOTE | 2016-11-23 17:17 | ED CLINICAL REPORT ---
Clinical Report - Physicians/Mid Levels [facility] [address] [place] [address] 11/23/2016 16:36 Patient: TATI NORIEGA Time Seen: 16:48; initial patient contact, initial documentation, patient care assumed. Arrived- By private vehicle. Historian- patient and family. HISTORY OF PRESENT ILLNESS Chief Complaint: SKIN RASH. This started about 2 weeks ago and is still present and worsening. It is described as itchy, painful and burning. It has been located on the left arm. No cause has been identified. (pt would also like pain medicine for her elbow pain, states dr here xrayed her elbow, but she didn't get the results, and she needs pain meds because her elbow throbs, denies any new injury/trauma). Similar symptoms previously: None. Recent medical care: The patient was seen recently at this facility in the emergency department. ( txed here 11/15, dx dermatitis, given rx cortizone cream, no better and no f/u). REVIEW OF SYSTEMS No difficulty breathing. All systems otherwise negative, except as recorded above. PAST HISTORY See nurses notes. PROBLEMS: Constipation. Neuropathy. Contact Dermatitis. Foot Fracture. Myofascial Strain. Cervical Strain. Wrist Fracture. Contusion. Fall. Cellulitis. Hernia. COPD - Chronic Obstructive Pulmonary Disease. Dyspnea. Dental Abscess. Sleep Apnea. Hypertriglyceridemia. Hypothyroidism. Diabetes Mellitus. --16:48 Rachana Messer R.N. Additional Surgeries: Tubal Ligation. SOCIAL HISTORY Never smoker. No alcohol use or drug use. No recent travel. Is a local resident. FAMILY HISTORY Negative. ADDITIONAL NOTES The nursing notes have been reviewed with agreement regarding the chief complaint, HPI, ROS, PMH and patient medications and allergies. PHYSICAL EXAM Vital Signs: 11/23/2016 16:44 BP: 146/71. HR: 92. RR: 18. O2 saturation: 95%. Temp: 97.7 F. Pain level now: 10/10. Have been reviewed as normal and appear to be correct. Appearance: Alert. Oriented X3. No acute distress. Eyes: Pupils equal, round and reactive to light. Conjunctivae and eyelids normal. Neck: Neck supple. Respiratory: No respiratory distress. Abdomen: (morbid obese). Skin: Skin warm and dry. Normal skin color. Rash present. Normal skin turgor. Moderate, erythematous, macular, papular, crusting skin rash in the left axilla, on the left arm, left elbow, left forearm, left wrist, left hand and left palm of the hand- with scabs and possible new lesions started. No blanching, weeping or excoriated skin rash. No skin rash with an erythematous base or a target-like or cobblestone appearance. Extremities: Normal external inspection. Extremities nontender. Neuro: Oriented X 3. No motor deficit. No sensory deficit. PROGRESS AND PROCEDURES Patient and family counseled in person regarding the patient's stable condition and diagnosis. Differential Diagnosis: Other possible considerations: dermatitis, fungus, mrsa, cellulitis, impetigo, psoriasis. Above considerations are based on history and physical exam. Differential diagnosis was discussed with patient and patient's family. Disposition: Discharged home in good and unchanged condition (17:17). Condition: good and stable. CLINICAL IMPRESSION Moderate irritative contact dermatitis. INSTRUCTIONS ([facility] [address] [facility] [address] Dermatology: ). Warnings: GENERAL WARNINGS: Return or contact your physician immediately if your condition worsens or changes unexpectedly, if not improving as expected, or if other problems arise. Specifically return if problem worsens. Prescription Medications: Ultram 50 mg tablets: take 1-2 orally every 6 hours as needed for pain. Dispense twenty (20). No refills. Substitution is permissible. Betamethasone Diproprinate Lotion 60ml bottle or 45gm tube apply bid to affected areas til gone. Follow-up: Follow up with a kiln stoker in about two days even if well. Call for an appointment. Summary of care provided to patient. Understanding of the discharge instructions verbalized by patient. (Electronically signed by Alexa Cisse A.R.N.P. 11/23/2016 20:45)
--- NOTE | 2016-11-23 20:45 | ED MAR SUMMARY ---
..... Medication Administration Record [facility] [address] [place] [address] Patient: TATI NORIEGA Visit ID: [id number] 55y, F Weight: 136.0 kg Height/Length: 66 in BMI: 48.4 ALLERGIES: Allergen, Loratadine
--- NOTE | 2016-11-23 20:45 | ED DISCHARGE INSTRUCTIONS ---
Patient: TATI NORIEGA General Instructions [facility] VisitID: [id number] [address] [place] [address] 55y, F Registration Date/Time: 11/23/2016 Moderate irritative contact dermatitis. INSTRUCTIONS ([facility] [address] [facility] [address] Dermatology: ). Warnings: GENERAL WARNINGS: Return or contact your physician immediately if your condition worsens or changes unexpectedly, if not improving as expected, or if other problems arise. Specifically return if problem worsens. Prescription Medications: Ultram 50 mg tablets: take 1-2 orally every 6 hours as needed for pain. Dispense twenty (20). No refills. Substitution is permissible. Betamethasone Diproprinate Lotion 60ml bottle or 45gm tube apply bid to affected areas til gone. Follow-up: Follow up with a cylinder loader in about two days even if well. Call for an appointment. Summary of care provided to patient. Understanding of the discharge instructions verbalized by patient. ADDITIONAL INFORMATION Dermatitis (Non-Specific) Dermatitis is an inflammation of the skin. The exact cause of your rash is not certain. However, this rash does not appear to be an infection or contagious illness. Taking care of the rash at home should help relieve your symptoms. Home Care: Keep the areas of rash clean by washing it daily. This also helps to keep the skin moist. Use a neutral pH soap such as Dove or Lever 2000. Apply a moisturizing lotion after bathing to prevent dry skin. Avoid skin irritants (wool or silk clothing, grease, oils, some medicines, harsh soaps, and detergents). Wear absorbent, soft fabrics next to the skin rather than rough or scratchy materials. Unless another medicine was prescribed, you may use Hydrocortisone cream (which you can get without a prescription) to reduce the inflammation. Follow Up: Make an appointment with your doctor in the next 1 to 2 weeks if your symptoms do not improve with the above measures. Get Prompt Medical Attention if any of the following occur: Increasing area of redness or pain in the skin Yellow crusts or drainage from the rash Joint pain New rash that appears in other areas of the body Fever of 100.4F (38C) or higher, or as directed by your healthcare provider Tramadol Hydrochloride Oral tablet What is this medicine? TRAMADOL (TRA ma dole) is a pain reliever. It is used to treat moderate to severe pain in adults. How should I use this medicine? Take this medicine by mouth with a full glass of water. Follow the directions on the prescription label. If the medicine upsets your stomach, take it with food or milk. Do not take more medicine than you are told to take. Talk to your incoming inspector regarding the use of this medicine in children. Special care may be needed. What side effects may I notice from receiving this medicine? Side effects that you should report to your doctor or health lead caregiver as soon as possible: allergic reactions like skin rash, itching or hives, swelling of the face, lips, or tongue breathing difficulties, wheezing confusion itching light headedness or fainting spells redness, blistering, peeling or loosening of the skin, including inside the mouth seizures Side effects that usually do not require medical attention (report to your doctor or health lead caregiver if they continue or are bothersome): constipation dizziness drowsiness headache nausea, vomiting What may interact with this medicine? Do not take this medicine with any of the following medications: MAOIs like Carbex, Eldepryl, Marplan, Nardil, and Parnate This medicine may also interact with the following medications: alcohol or medicines that contain alcohol antihistamines benzodiazepines bupropion carbamazepine or oxcarbazepine clozapine cyclobenzaprine digoxin furazolidone linezolid medicines for depression, anxiety, or psychotic disturbances medicines for migraine headache like almotriptan, eletriptan, frovatriptan, naratriptan, rizatriptan, sumatriptan, zolmitriptan medicines for pain like pentazocine, buprenorphine, butorphanol, meperidine, nalbuphine, and propoxyphene medicines for sleep muscle relaxants naltrexone phenobarbital phenothiazines like perphenazine, thioridazine, chlorpromazine, mesoridazine, fluphenazine, prochlorperazine, promazine, and trifluoperazine procarbazine warfarin What if I miss a dose? If you miss a dose, take it as soon as you can. If it is almost time for your next dose, take only that dose. Do not take double or extra doses. Where should I keep my medicine? Keep out of the reach of children. Store at room temperature between 15 and 30 degrees C (59 and 86 degrees F). Keep container tightly closed. Throw away any unused medicine after the expiration date. What should I tell my health care provider before I take this medicine? They need to know if you have any of these conditions: brain tumor depression drug abuse or addiction head injury if you frequently drink alcohol containing drinks kidney disease or trouble passing urine liver disease lung disease, asthma, or breathing problems seizures or epilepsy suicidal thoughts, plans, or attempt; a previous suicide attempt by you or a family member an unusual or allergic reaction to tramadol, codeine, other medicines, foods, dyes, or preservatives or trying to get breast-feeding What should I watch for while using this medicine? Tell your doctor or health lead caregiver if your pain does not go away, if it gets worse, or if you have new or a different type of pain. You may develop tolerance to the medicine. Tolerance means that you will need a higher dose of the medicine for pain relief. Tolerance is normal and is expected if you take this medicine for a long time. Do not suddenly stop taking your medicine because you may develop a severe reaction. Your body becomes used to the medicine. This does NOT mean you are addicted. Addiction is a behavior related to getting and using a drug for a non-medical reason. If you have pain, you have a medical reason to take pain medicine. Your doctor will tell you how much medicine to take. If your doctor wants you to stop the medicine, the dose will be slowly lowered over time to avoid any side effects. You may get drowsy or dizzy. Do not drive, use machinery, or do anything that needs mental alertness until you know how this medicine affects you. Do not stand or sit up quickly, especially if you are an older patient. This reduces the risk of dizzy or fainting spells. Alcohol can increase or decrease the effects of this medicine. Avoid alcoholic drinks. You may have constipation. Try to have a bowel movement at least every 2 to 3 days. If you do not have a bowel movement for 3 days, call your doctor or health lead caregiver. Your mouth may get dry. Chewing sugarless gum or sucking hard candy, and drinking plenty of water may help. Contact your doctor if the problem does not go away or is severe. You have been given the following additional information: Dermatitis, Non-Specific Tramadol Hydrochloride Oral tablet (Electronically signed by Alexa Cisse A.R.N.P. 11/23/2016 20:45)
--- NOTE | 2016-11-23 20:45 | ED MAR SUMMARY ---
..... Medication Administration Record [facility] [address] [place] [address] Patient: TATI NORIEGA Visit ID: [id number] 55y, F Weight: 136.0 kg Height/Length: 66 in BMI: 48.4 ALLERGIES: Allergen, Loratadine
--- NOTE | 2016-11-23 20:45 | ED DISCHARGE INSTRUCTIONS ---
Patient: TATI NORIEGA General Instructions [facility] VisitID: [id number] [address] [place] [address] 55y, F Registration Date/Time: 11/23/2016 Moderate irritative contact dermatitis. INSTRUCTIONS ([facility] [address] [place] [facility] [address] Dermatology: ). Warnings: GENERAL WARNINGS: Return or contact your physician immediately if your condition worsens or changes unexpectedly, if not improving as expected, or if other problems arise. Specifically return if problem worsens. Prescription Medications: Ultram 50 mg tablets: take 1-2 orally every 6 hours as needed for pain. Dispense twenty (20). No refills. Substitution is permissible. Betamethasone Diproprinate Lotion 60ml bottle or 45gm tube apply bid to affected areas til gone. Follow-up: Follow up with a electrician bus in about two days even if well. Call for an appointment. Summary of care provided to patient. Understanding of the discharge instructions verbalized by patient. ADDITIONAL INFORMATION Dermatitis (Non-Specific) Dermatitis is an inflammation of the skin. The exact cause of your rash is not certain. However, this rash does not appear to be an infection or contagious illness. Taking care of the rash at home should help relieve your symptoms. Home Care: Keep the areas of rash clean by washing it daily. This also helps to keep the skin moist. Use a neutral pH soap such as Dove or Lever 2000. Apply a moisturizing lotion after bathing to prevent dry skin. Avoid skin irritants (wool or silk clothing, grease, oils, some medicines, harsh soaps, and detergents). Wear absorbent, soft fabrics next to the skin rather than rough or scratchy materials. Unless another medicine was prescribed, you may use Hydrocortisone cream (which you can get without a prescription) to reduce the inflammation. Follow Up: Make an appointment with your doctor in the next 1 to 2 weeks if your symptoms do not improve with the above measures. Get Prompt Medical Attention if any of the following occur: Increasing area of redness or pain in the skin Yellow crusts or drainage from the rash Joint pain New rash that appears in other areas of the body Fever of 100.4F (38C) or higher, or as directed by your healthcare provider Tramadol Hydrochloride Oral tablet What is this medicine? TRAMADOL (TRA ma dole) is a pain reliever. It is used to treat moderate to severe pain in adults. How should I use this medicine? Take this medicine by mouth with a full glass of water. Follow the directions on the prescription label. If the medicine upsets your stomach, take it with food or milk. Do not take more medicine than you are told to take. Talk to your superintendent plant regarding the use of this medicine in children. Special care may be needed. What side effects may I notice from receiving this medicine? Side effects that you should report to your doctor or health healthcare administrative assistant as soon as possible: allergic reactions like skin rash, itching or hives, swelling of the face, lips, or tongue breathing difficulties, wheezing confusion itching light headedness or fainting spells redness, blistering, peeling or loosening of the skin, including inside the mouth seizures Side effects that usually do not require medical attention (report to your doctor or health healthcare administrative assistant if they continue or are bothersome): constipation dizziness drowsiness headache nausea, vomiting What may interact with this medicine? Do not take this medicine with any of the following medications: MAOIs like Carbex, Eldepryl, Marplan, Nardil, and Parnate This medicine may also interact with the following medications: alcohol or medicines that contain alcohol antihistamines benzodiazepines bupropion carbamazepine or oxcarbazepine clozapine cyclobenzaprine digoxin furazolidone linezolid medicines for depression, anxiety, or psychotic disturbances medicines for migraine headache like almotriptan, eletriptan, frovatriptan, naratriptan, rizatriptan, sumatriptan, zolmitriptan medicines for pain like pentazocine, buprenorphine, butorphanol, meperidine, nalbuphine, and propoxyphene medicines for sleep muscle relaxants naltrexone phenobarbital phenothiazines like perphenazine, thioridazine, chlorpromazine, mesoridazine, fluphenazine, prochlorperazine, promazine, and trifluoperazine procarbazine warfarin What if I miss a dose? If you miss a dose, take it as soon as you can. If it is almost time for your next dose, take only that dose. Do not take double or extra doses. Where should I keep my medicine? Keep out of the reach of children. Store at room temperature between 15 and 30 degrees C (59 and 86 degrees F). Keep container tightly closed. Throw away any unused medicine after the expiration date. What should I tell my health care provider before I take this medicine? They need to know if you have any of these conditions: brain tumor depression drug abuse or addiction head injury if you frequently drink alcohol containing drinks kidney disease or trouble passing urine liver disease lung disease, asthma, or breathing problems seizures or epilepsy suicidal thoughts, plans, or attempt; a previous suicide attempt by you or a family member an unusual or allergic reaction to tramadol, codeine, other medicines, foods, dyes, or preservatives or trying to get breast-feeding What should I watch for while using this medicine? Tell your doctor or health healthcare administrative assistant if your pain does not go away, if it gets worse, or if you have new or a different type of pain. You may develop tolerance to the medicine. Tolerance means that you will need a higher dose of the medicine for pain relief. Tolerance is normal and is expected if you take this medicine for a long time. Do not suddenly stop taking your medicine because you may develop a severe reaction. Your body becomes used to the medicine. This does NOT mean you are addicted. Addiction is a behavior related to getting and using a drug for a non-medical reason. If you have pain, you have a medical reason to take pain medicine. Your doctor will tell you how much medicine to take. If your doctor wants you to stop the medicine, the dose will be slowly lowered over time to avoid any side effects. You may get drowsy or dizzy. Do not drive, use machinery, or do anything that needs mental alertness until you know how this medicine affects you. Do not stand or sit up quickly, especially if you are an older patient. This reduces the risk of dizzy or fainting spells. Alcohol can increase or decrease the effects of this medicine. Avoid alcoholic drinks. You may have constipation. Try to have a bowel movement at least every 2 to 3 days. If you do not have a bowel movement for 3 days, call your doctor or health healthcare administrative assistant. Your mouth may get dry. Chewing sugarless gum or sucking hard candy, and drinking plenty of water may help. Contact your doctor if the problem does not go away or is severe. You have been given the following additional information: Dermatitis, Non-Specific Tramadol Hydrochloride Oral tablet (Electronically signed by Alexa Cisse A.R.N.P. 11/23/2016 20:45)
--- NOTE | 2016-11-23 20:46 | ED MED RECONCILIATION SUMMARY ---
Patient: TATI NORIEGA Medication Reconciliation Report [facility] VisitID: [id number] [place] [address] 55y, F Registration Date/Time: 11/23/2016 Weight: 136.0 kg Height/Length: 66 in. BMI: 48.4 ALLERGIES: Allergen, Loratadine The patient's Home Medications are listed below: THE FOLLOWING MEDICATIONS NEED TO BE RECONCILED: Advair Diskus Inhalation, 2x a day Albuterol Sulfate HFA Inhalation, 4x a day Alcaftadine Ophthalmic 1 gtt, each eye/ daily ASA Oral 81mg, daily Cetirizine HCl Oral 10 mg, daily Citalopram Hydrobromide Oral (40 mg), daily Cod Liver Oil Oral 1 tablespoon, daily Combivent Inhalation Flonase Nasal 2 sprays, 2x a day HumaLOG Subcutaneous 20 units, before meals HydrOXYzine HCl Oral 25 mg, 4x a day Lantus Subcutaneous 100 units, daily Lasix Oral 80 mg, 2x a day Levothyroxine Sodium Oral 175 mcg, daily Mirena 20mcg/24hr x 5 yrs Nitroglycerin Sublingual [place]ella 3 Oral 300 mg, daily Oyster Shell Calcium Oral (500 mg), bid Pantanol 1 gtt , 2x a day, opthalmic route Potassium Chloride Oral 10 meq, 3x a day Spiriva HandiHaler Inhalation Vit D 3 2000 units, daily The source(s) of the original Home Medication information: patient The following Medications were given to the patient in the Emergency Department: None. The following Medications were prescribed to the patient: Ultram 50 mg tablets: take 1-2 orally every 6 hours as needed for pain. Dispense twenty (20). No refills. Substitution is permissible. -- Alexa Cisse, iMllicentR.N.P. Betamethasone Diproprinate [id number] bottle or 45gm tubeapply bid to affected areas til gone. -- Alexa Cisse A.R.NGracieP.
--- NOTE | 2016-11-23 20:46 | ED MED RECONCILIATION SUMMARY ---
Patient: TATI NORIEGA Medication Reconciliation Report [facility] VisitID: [id number] [place] [address] 55y, F Registration Date/Time: 11/23/2016 Weight: 136.0 kg Height/Length: 66 in. BMI: 48.4 ALLERGIES: Allergen, Loratadine The patient's Home Medications are listed below: THE FOLLOWING MEDICATIONS NEED TO BE RECONCILED: Advair Diskus Inhalation, 2x a day Albuterol Sulfate HFA Inhalation, 4x a day Alcaftadine Ophthalmic 1 gtt, each eye/ daily ASA Oral 81mg, daily Cetirizine HCl Oral 10 mg, daily Citalopram Hydrobromide Oral (40 mg), daily Cod Liver Oil Oral 1 tablespoon, daily Combivent Inhalation Flonase Nasal 2 sprays, 2x a day HumaLOG Subcutaneous 20 units, before meals HydrOXYzine HCl Oral 25 mg, 4x a day Lantus Subcutaneous 100 units, daily Lasix Oral 80 mg, 2x a day Levothyroxine Sodium Oral 175 mcg, daily Mirena 20mcg/24hr x 5 yrs Nitroglycerin Sublingual [place] 3 Oral 300 mg, daily Oyster Shell Calcium Oral (500 mg), bid Pantanol 1 gtt , 2x a day, opthalmic route Potassium Chloride Oral 10 meq, 3x a day Spiriva HandiHaler Inhalation Vit D 3 2000 units, daily The source(s) of the original Home Medication information: patient The following Medications were given to the patient in the Emergency Department: None. The following Medications were prescribed to the patient: Ultram 50 mg tablets: take 1-2 orally every 6 hours as needed for pain. Dispense twenty (20). No refills. Substitution is permissible. -- Alexa Cisse, MillicentR.N.P. Betamethasone Diproprinate [id number] bottle or 45gm tubeapply bid to affected areas til gone. -- Alexa Cisse A.R.NGracieP.
== END 2016-11-23 17:42 | disposition home or self-care (01) ==
LOC: ED SRH 16:37
DX: L24.9 Irritant contact dermatitis, unspecified cause (principal); J44.9 Chronic obstructive pulmonary disease, unspecified; E11.9 Type 2 diabetes mellitus without complications